=== PATIENT | male | born 1960 | race Caucasian/White ===

== ENCOUNTER 2023-12-13 06:58 | Day surgery (SDC) | payer MEDICAID ==
[~2023-12-13] VITALS: Ht 172.7 cm; Wt 126.1 kg
[~2023-12-13 06:58] MED LIST: BUPR-346 PO; BUSP15TA60 PO; CETI-195 PO; CHOL100079 PO; CLON0.5T3 PO; ESCI1TAB37 PO; FOLI-119 PO; HYDR50TA69 PO; LISI40TA16 PO; METH2.5T PO; NOR10T; NORT25CA PO; PANT40T PO; POM; POTA99TA3 PO; PRA1C PO; PRAV20TA3 PO; TOPI100T68 PO
[2023-12-13] MEDS ORDERED: IODIXANOL 320MG/ML 100ML BTL IV ONE (08:01)
[2023-12-13] MEDS ORDERED: LIDOCAINE 2%HCL (LOCAL ANESTH.) INJ 20ML MDV ONE (08:01)
[2023-12-13] MEDS ORDERED: VERAPAMIL 2.5MG/ML INJ 2ML VIAL IV ONE (08:05)
[2023-12-13] MEDS ORDERED: HEPARIN SODIUM (PORCINE) 5000 UNITS/ML 1ML VIAL ONE (08:05)
[2023-12-13] MEDS ORDERED: ANGIOMAX 250 MG VIAL IV ONE (08:05)
[2023-12-13] MEDS ORDERED: SODIUM CHL 0.9% 0 ML ONE (08:06)
[2023-12-13] MEDS ORDERED: MIDAZOLAM HCL 2MG/2ML 2ml VIAL (1mg/ml) ONE (08:06)
[2023-12-13] MEDS ORDERED: fentaNYL CITRATE 100 MCG/2 ML VL ONE (08:06)
[2023-12-13 08:55] VITALS: BP 100/64; PULSE 73; RESP 18; O2SAT 93
[2023-12-13 09:25] VITALS: BP 110/75; PULSE 73; RESP 22; O2SAT 93
[2023-12-13 09:55] VITALS: BP 126/79; PULSE 75; RESP 16; O2SAT 93
[2023-12-13 10:25] VITALS: BP 110/60; PULSE 75; RESP 21; O2SAT 95
[2023-12-13 10:46] VITALS: BP 125/80; PULSE 73; RESP 17; O2SAT 95
== END 2023-12-13 10:55 | disposition home or self-care (01) ==
LOC: CATH 06:58
PROVIDERS: ATTEND Internal Medicine Cardiovascular Disease
DX: I25.10 Atherosclerotic heart disease of native coronary artery without angina pectoris (principal); R94.39 Abnormal result of other cardiovascular function study; I10 Essential (primary) hypertension; E78.5 Hyperlipidemia, unspecified; F41.8 Other specified anxiety disorders; E66.09 Other obesity due to excess calories; Z68.41 Body mass index [BMI] 40.0-44.9, adult; Z89.429 Acquired absence of other toe(s), unspecified side; Z88.0 Allergy status to penicillin
CPT/HCPCS: 93458; C1894; J1644; J2250; J3010; J7040; Q9967; 99152